=== PATIENT | male | born 1940 | race Caucasian/White ===

== ENCOUNTER → 2016-09-18 | Outpatient (CLI) | payer MEDICARE, MEDICAID ==
[~2016-09-18] MED LIST: ALDACTONE25 MG PO; ARIPIPRAZOLE5 MG PO; BUSPAR10 MG PO; CALCIUM 500 +1 EACH PO; COLACE100 MG PO; COREG 3.1253.125 MG PO; DEMADEX20 MG PO; ECOTRIN325 MG PO; EFFEXOR XR150 MG PO; FENOFIBRATE48 MG PO; FEOSOL325 MG PO; FISH OIL 1,0001 EACH PO; FLOMAX0.4 MG PO; FLORASTOR250 MG PO; GLUCOPHAGE500 MG PO; LEVAQUIN 750 M750 MG PO; LEVOTHROID (S137 MCG PO; LIPITOR80 MG PO; LYRICA 75MG CAP75 MG PO; PLAVIX75 MG PO; PRILOSEC20 MG PO; THERAGRAN-M1 TAB PO; VITAMIN B-121000 MCG PO; ZOCOR20 MG PO
[2016-09-18 11:49] LABS: HEMATOCRIT 43.6 % (37.0-53.0); HEMOGLOBIN 13.9 g/dL (11.0-16.0); MCH 28.4 pg (27.0-34.0); MCHC 31.9 gm/dL (32.0-36.5); MPV 10.1 fl (9.4-12.4); PLATELET COUNT 405 K/uL (150-450); RDW-CV 16.4 % (11.9-14.6)
[2016-09-18 12:06] LABS: ANION GAP 14.2 (10.0-19.0); CALCIUM 9.6 mg/dL (8.5-10.5); CREATININE 1.2 mg/dL (0.6-1.3); POTASSIUM 4.2 mMol/L (3.7-5.1)
[2016-09-18 12:17] LABS: ABSOLUTE NEUTROPHIL CT (ANC) 9.5 K/uL (1.4-9.0); BANDED NEUTROPHIL # 0.4 K/uL (0.0-0.1); BANDED NEUTROPHILS % 4 %; LYMPHOCYTE # 0.8 K/uL (0.8-4.0); LYMPHOCYTE % 7 %; MONOCYTE # 0.7 K/uL (0.0-1.0); SEGMENTED NEUTROPHIL % 82 %
== END ==
LOC: LGSOS 11:38
PROVIDERS: Internal Medicine Interventional Cardiology
DX: I10 Essential (primary) hypertension (principal)